=== PATIENT | female | born 1960 | race Caucasian/White ===

== ENCOUNTER 2024-08-26 10:56 | Outpatient (REF) | payer OTHER, SELFPAY ==
[2024-08-26 13:57] LABS: MANUAL DIFF FLAG NO
[2024-08-26 14:04] LABS: Hematocrit 40.1 % (37.0-47.0); Hemoglobin 13.5 g/dl (12.0-16.0); Imm Gran Abs Auto 0.03 X10*3/uL (0.00-0.03); Imm Gran Pct Auto 0.4 % (0.0-0.4); Lymphocytes Absolute Auto 1.4 X10*3/uL (1.2-4.9); Mean Corpuscular HGB Conc 33.7 g/dl (31.0-35.0); Mean Corpuscular Hemoglobin 32.2 pg (27.0-33.0); Mean Corpuscular Volume 95.7 fL (80.0-98.0); NRBC Abs Auto 0.000 X10*3/uL (0.0-0.012); NRBC Pct Auto 0.0 /100WBC (0.0-0.2); Platelet Count 240 X10*3/uL (160-400); Red Blood Count 4.19 X10*6/uL (4.20-5.50); White Blood Count 7.3 X10*3/uL (4.8-10.8)
[2024-08-26 14:24] LABS: Alanine Aminotransferase 30 U/L (0-31); Aspartate Amino Transferase 33 U/L (5-31); Estimated Glomerular Filt Rate > 60
== END 2024-08-26 10:57 | disposition home or self-care (01) ==
LOC: HO.HKASLDS 10:56
PROVIDERS: PCP Internal Medicine; Visit Provider Internal Medicine Rheumatology
DX: M18.11 Unilateral primary osteoarthritis of first carpometacarpal joint, right hand (principal); S76.019A Strain of muscle, fascia and tendon of unspecified hip, initial encounter; M65.4 Radial styloid tenosynovitis [de Quervain]; M79.18 Myalgia, other site; M54.50 Low back pain, unspecified; G89.29 Other chronic pain; Z79.1 Long term (current) use of non-steroidal anti-inflammatories (NSAID); Z79.899 Other long term (current) drug therapy
CPT/HCPCS: 36415; 82565; 84450; 84460; 85025

== ENCOUNTER 2024-08-26 10:56 | Outpatient (AMB) | payer OTHER, SELFPAY ==
--- NOTE | 2024-08-26 11:02 | A.OFFVIS_ITS ---
Vital Signs 08/26/24 11:03 Height 5 ft 6.5 in Weight 144 lb 2 oz BMI 22.9 BP 132/80 Blood Pressure Location Lt brachial Position Sitting Pulse 8 L Pulse Source Pulse Oximeter Pulse Oximetry (%) 98 Oxygen Delivery Method Room Air Intake Visit Reasons: arthritis Intake Note: Patient presents for an arthritis follow up. Patient concerned about bump on right hand for about a year. She also complains of bilateral hip pain. Accompanied by: Self / Same As Patient Allergies Sulfa (Sulfonamide Antibiotics) Allergy (Mild, Verified 08/26/24 11:07) Hives HPI HPI arthritis: Details: New patient visit. For the last 3 weeks she has been experiencing buttocks pain. This pain is new. Pain is exacerbated with prolonged sitting. She has difficulty getting up. Constant pain. She has history of being diagnosed with sciatica with bilateral radiculopathy. She was managed with physical therapy for 6 months without benefit. She saw [facility] who gave her L-spine cortisone injections on 2 separate occasions. Prior to cortisone injections she had 6 months of physical therapy without benefit. The most recent in May provided her relief and resolved radicular symptoms. Most recently she started taking tizanidine twice a day from q.h.s.. Heating pad helps. She had 1 episode of urinary incontinence 2 weeks ago. She takes naproxen 500 mg prn pain. She has been experiencing R CMC pain for the last 6 months with a difficulty holding objects. She has developed weakness in her right hand. She had arthroscopic surgery on left CMC. Medical history [facility] in [facility] ([facility] She has had surgery to repair bilateral rotator cuff tendons, left CMC arthroscopic surgery and breast reduction. Medication list reviewed with patient. [facility] Medical History (Updated 08/26/24 @ 12:41 by John Wilcox MD) Depression Anxiety Joint pain Bilateral hip pain Sciatica High cholesterol Hypertension Osteoarthritis Psoriasis Surgical History (Updated 08/26/24 @ 11:10 by Crystal Frias CMA) History of arthroscopic surgery of shoulder Family History (Updated 08/26/24 @ 11:11 by Crystal Frias CMA) Brother Psoriasis Social History (Updated 08/26/24 @ 11:14 by Crystal Frias CMA) Patient Tobacco Use Status: Former Tobacco user Use of substances other than those prescribed or required for medical reasons: No Physical Exam Vital Signs: Last Vital Signs Pulse 8 L 08/26/24 11:03 BP 132/80 08/26/24 11:03 Pulse Ox 98 08/26/24 11:03 Oxygen Delivery Method Room Air 08/26/24 11:03 BMI result Body Mass Index 22.9 Const Other: General: Comfortable CVS: RRR Respiratory: clear to auscultation bilaterally. Good respiratory effort Skin: No lesions seen MSK: She has tenderness along right 1st extensor compartment. Right CMC squaring with tenderness on palpation. Right 1st MCP pain. She is able to make a fist with her hands. No soft tissue swelling or synovitis. Normal range of motion of upper extremities and lower extremities. She has tenderness along right paraspinal muscle of lower lumbar spine. She has tenderness of bilateral SI joints. Tenderness is localized to lower gluteal muscles. Good lumbar flexion. Assessment & Plan Assessment & Plan (1) Osteoarthritis of carpometacarpal joint of right thumb: Comment: Clinical diagnosis. Discussed conservative management. Code(s): M18.11 - Unilateral primary osteoarthritis of first carpometacarpal joint, right hand Category: Medical Plan: OT prescribed with custom right CMC splint Continue to apply diclofenac gel to affected area up to 4 times a day PRN pain X-ray right hand ordered Baseline labs ordered prior to switching NSAID. She will stop naproxen and start nabumetone 500 mg twice a day Return to clinic in 3 months or sooner if needed for cortisone injection (2) De Quervain's tenosynovitis, right: Comment: Discussed diagnosis and management Code(s): M65.4 - Radial styloid tenosynovitis [de Quervain] Category: Medical Plan: Thumb spica splint prescribed OT prescribed Baseline labs ordered prior to switching NSAID. She will stop naproxen and start nabumetone 500 mg twice a day Return to clinic in 3 months (3) Lower back pain: Comment: Acute on chronic back pain now involving buttocks region. She has background of lumbar bilateral radiculopathy improving with cortisone injections given to her in May. Her most recent back pain is localized to the bilateral buttocks region. Differential diagnosis includes myofascial strain (relief with muscle relaxer and using heating pad at night), SI joint arthritis versus spinal canal stenosis (1 episode of urinary incontinence). We discussed conservative management. She has not found benefit on naproxen. Previously Celebrex was ineffective to help control her pain Code(s): M54.50 - Low back pain, unspecified Category: Medical Qualifiers: Chronicity: chronic Back pain laterality: bilateral Sciatica presence: without sciatica Qualified Code(s): M54.50 - Low back pain, unspecified; G89.29 - Other chronic pain Plan: Baseline labs ordered prior to starting NSAID Stopped naproxen Start nabumetone 500 mg twice a day Continue tizanidine 2 mg b.i.d. Continue to apply heat to back at night PT ordered with myofascial release, TENs unit trial and back strengthening program X-ray L-spine and SI joint ordered for further evaluation of joint pathology contributing to her symptoms If symptoms do not improve with conservative management above, I will order MRI L-spine to evaluate for spinal canal stenosis Return to clinic in 3 months (4) Bilateral buttock pain: Code(s): M79.18 - Myalgia, other site Category: Medical Plan: See above (5) Myofascial low back pain: Code(s): M54.50 - Low back pain, unspecified Category: Medical Plan: See above (6) Muscle strain of gluteal region: Code(s): S76.019A - Strain of muscle, fascia and tendon of unspecified hip, initial encounter Category: Medical Qualifiers: Encounter type: initial encounter Laterality: unspecified laterality Qualified Code(s): S76.019A - Strain of muscle, fascia and tendon of unspecified hip, initial encounter Plan: See above (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 (nsaid): Code(s): Z79.1 - long-term (current) use of non-steroidal anti-inflammatories (NSAID) Category: Medical Plan: See above Orders: Orders XR lumbar spine 2-3V Today M54.50 - Low back pain, unspecified, M79.18 - Joseline lgia, other site Alanine Aminotransferase Today Z79.1 - 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-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 anti-inflammatories (NSAID) OT Evaluation and Treatment Today M18.11 - Unilateral primary osteoarthritis of first carpometacarpal joint, right hand, M65.4 - Radial styloid tenosynovitis [de Quervain] PT Evaluation and Treatment Today M54.50 - Low back pain, unspecified, M79.18 - Myalgia, other site, S76.019A - Strain of muscle, fascia and tendon of unspecified hip, initial encounter XR hand RT min 3V Today M18.11 - Unilateral primary osteoarthritis of first carpometacarpal joint, right hand XR sacroiliac joint min 3V Today M18.11 - Unilateral primary osteoarthritis of first carpometacarpal joint, right hand Aspartate Amino Transferase Today Z79.1 - 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 Replace naproxen. 500 mg PO BID 60 tabs 2RF arm brace (Wrist Brace) As directed R thumb spica splint short Dx: De Quervain tenosynovitis 1 ea 0RF Coding Level of Care Code Est Pt Level 4 (78232) Complex EM visit Add On G2211 Diagnoses Osteoarthritis of carpometacarpal joint of right thumb M18.11 De Quervain's tenosynovitis, right M65.4 Chronic bilateral low back pain without sciatica M54.50; G89.29 Chronicity: chronic Back pain laterality: bilateral Sciatica presence: without sciatica Bilateral buttock pain M79.18 Myofascial low back pain M54.50 Muscle strain of gluteal region, unspecified laterality, initial encounter S76.019A Encounter type: initial encounter Laterality: unspecified laterality 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
[2024-08-26 11:03] VITALS: BP 132/80; PULSE 8; O2SAT 98; BMI 22.9
--- OUTSIDE RECORDS SUMMARY | 2024-08-26 11:46 | XMS_ITS | Patient Health Record ---
Author Organization [employer] [facility] Address [address] [place] [address] Care Team Providers Care Phlebotomy Coordinator Name Role Phone AVIVA SAHU, [facility] Primary Care Provider Un available JOHANNA LE Unavailable [phone] Allergies Allergen (clinical drug ingredient) Drug/Non Drug Allergy documented on EMR Reaction Allergy Type Onset Date Status Substance with sulfonamide structure and antibacterial mechanism of action (substance) Sulfa Antibiotics Hives Drug Allergy Active Reason For Referral No Information Medications Medication SIG (Take, Route, Frequency, Duration) Notes Start Date End Date Status Vitamin D 25 MCG (1000 UT) 1 tablet Oral ly Once a day; Duration: 30 day(s) Active Lisinopril 10 MG 1 tablet Oral Once a day Active traZODone HCl 50MG ORAL; Duration: -3 12/25/2013 Active Vitamin C 500 MG as directed Orally Active Nortriptyline HCl 50MG 3 ORAL at bedtime ; Duration: -3 10/09/2012 Active medroxyPROGESTERone Acetate 5 MG 1 tablet with food Orally Once a day; Duration: 90 days Active Gabapentin 300 MG 1 Orally Twice a day 10/09/2012 Active Rosuvastatin Calcium 40 MG 1 tablet Oral ly Once a day; Duration: 30 day(s) 11/07/2023 Active busPIRone HCl 10 MG 1 tablet Orally Once a day Active Social History Tobacco Use: Social History Observation Description Date Details (start date - stop date) Former Smoker NA - NA Tobacco Use/Smoking Question Answer Notes Are you a former smoker How long has it been since y ou last smoked? > 10 years Additional Findings: Tobacco Non-User Ex-heavy c igarette smoker (20-30/day) Alcohol Screen (Audit-C) Question Answer Notes Did you have a drink contain ing alcohol in the past year? Yes How often did you have a dri nk containing alcohol in the past year? 4 or more times a week (4 points) How many drinks did you have on a typical day when you were drinking in the past year? 1 or 2 drinks (0 point) How often did you have 6 or more drinks on one occasion in the past year? Never (0 point) Points 4 Interpretation Positive Sexual History Question Answer Notes Had sex in the past 12 months (vaginal, oral, or anal)? 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 Heterosexual Problems Problem Type SNOMED Code ICD Code Onset Dates Problem Status W/U Status Risk Notes Problem Postmenopausal bleeding (09376535) Postmenopausal bleeding (N95.0) Active confirmed Problem Menopause (362248509) Menopausal and female climacteric states (N95.1) Active confirmed Problem COVID-19 (737781131) COVID-19 (U07.1) Active confirmed Problem Hyperlipidemia (74389745) Other and unspecified hyperlipidemia (272.4) Active confirmed Major Problem Esophageal reflux (419791387) Esophageal reflux (530.81) Active confirmed Major Problem Menopausal symptom (52881396) Symptomatic menopausal or female climacteric states (627.2) Active confirmed Diag Problem Osteoarthritis (327709255) Osteoarthrosis, unspecified whether generalized or localized, unspecified site (715.90) Active confirmed Major Problem Muscle pain (87057198) Unspecified myalgia and myositis (729.1) Active confirmed Major Vital Signs Temperature 97.5 degrees Fahrenheit 11/07/2023 Blood pressure diastolic 86 mm Hg 11/07/2023 Height 66 in 11/07/2023 Blood pressure systolic 120 mm Hg 11/07/2023 Weight 137 lbs 11/07/2023 BMI 22.11 kg/m2 11/07/2023 Encounters Encounter Location Date Provider Diagnosis Total [facility] [address] [place] [address] 11/07/2023 JOHANNA LE Encounter for gynecological examination (general) (routine) without abnormal findings Z01.419 ; Encounter for screening mammogram for malignant neoplasm of breast Z12.31 and Menopausal and female climacteric states N95.1 Assessments Encounter Date Diagnosis (ICD Code) Assessment Notes Treatment Notes Treatment Clinical Notes Section Notes 11/07/2023 Encounter for gynecological examination (general) (routine) without abnormal findings (ICD-10 - Z01.419) During the visit, the following areas of concern were addressed: Discussed cervical cancer screening with either cytology alone every 3 years or high risk HPV co-testing every 5 years as per ASCCP guidelines. Advised continued annual pelvic exams. Patient encouraged to increase her level of exercise. SBE technique encouraged/tau ght. Patient reminded when annual mammogram is due. Patient encouraged to keep colon screening up to date. 11/07/2023 Encounter for screening mammogram for malignant neoplasm of breast (ICD-10 - Z12.31) 11/07/2023 Menopausal and female climacteric states (ICD-10 - N95.1) Plan Of Treatment Pending Test Test Name Order Date Urinalysis 05/28/2018 URINE CULTURE 06/19/2018 MM Digital Mammo Screening 04/10/2017 MM Digital Mammo Screening 05/28/2018 MM Digital Mammo Screening 10/11/2020 MM Digital Screening Mammogram 3D 2021 MM Digital Screening Mammogram 3D 2022 MM Digital Screening Mammogram 3D 2023 Next Appt Details Provider Name:JOHANNA Bhatia, 11/12/2024 03:30:00 PM, [address], [place], [address], Insurance Providers Payer Name Payer Address Payer Phone Subscriber Number Group Number Insured Name Patient Relationship to Insured Coverage Start Date Coverage End Date [facility] [address] [place] [address] [id number] MARATEA, JAMES Self - patient is the insured Medical (General) History Medical History History ICD Code Menopausal and female climacteric states N95.1 Postmenopausal bleeding N95.0 Fibromyalgia M79.7 Unspecified osteoarthritis, unspecified site M19.90 Gastro-esophageal reflux disease without esophagitis K21.9 Hyperlipidemia, unspecified E78.5 Hormone replacement therapy Z79.890 COVID-19 U07.1 Surgical History Surgery Date(Month/Year) Breast Reduction Arthroscopy Left Thumb Colonoscopy 2011 Rotator cuff surgery - left 02/2019 Rotator cuff surgery - right 10/2017 Hospitalization History Reason Date(Month/Year) See Surgical Hx 2 Vaginal Deliveries
--- OUTSIDE RECORDS SUMMARY | 2024-08-26 11:46 | XMS_ITS | Patient Health Record ---
Author Organization [facility] Address [address] [place] [address] Care Team Providers Care State Farm Agent Team Member Name Role Phone Jose Roberto Franco Primary Care Provider Reason For Referral No Information Plan Of Treatment No Information Insurance Providers Payer Name Payer Address Payer Phone Subscriber Number Group Number Insured Name Patient Relationship to Insured Coverage Start Date Coverage End Date [place] OF [place]/OUT OF [place]AN [address] [place], [place] [id number] Manjula Romero Self - patient is the insured
== END 2024-08-26 12:55 | disposition home or self-care (01) ==
PROVIDERS: PCP Internal Medicine; Visit Provider Internal Medicine Rheumatology
DX: M18.11 Unilateral primary osteoarthritis of first carpometacarpal joint, right hand (principal); M65.4 Radial styloid tenosynovitis [de Quervain]; M54.50 Low back pain, unspecified; G89.29 Other chronic pain; M79.18 Myalgia, other site; S76.019A Strain of muscle, fascia and tendon of unspecified hip, initial encounter; Z79.1 Long term (current) use of non-steroidal anti-inflammatories (NSAID)
CPT/HCPCS: 99214

== ENCOUNTER 2024-09-21 13:39 | Outpatient (REF) | payer OTHER, SELFPAY ==
--- NOTE | ~2024-09-21 | XR_ITS ---
EXAMINATION: XR SACROILIAC JOINTS CLINICAL INFORMATION: M18.11 - Unilateral primary osteoarthritis of first carpometacarpal join... COMPARISON: None available. TECHNIQUE: AP and oblique views of the sacroiliac joints FINDINGS: No acute cortical disruption. No lytic or blastic lesions. Sclerosis and the inferior sacroiliac joints pronounced on the right side. XR/XR sacroiliac joint min 3V IMPRESSION: Mild sacroiliitis. Electronically signed by: Adrien Raza MD 09/21/2024 03:17 PM EDT
--- NOTE | ~2024-09-21 | XR_ITS ---
EXAMINATION: XR LUMBOSACRAL SPINE CLINICAL INFORMATION: M54.50 - Low back pain, unspecified COMPARISON: None available. TECHNIQUE: AP and lateral views. FINDINGS: Levoconvex rotoscoliosis apex at L3-4. Marginal osteophyte formation and endplate sclerosis decreased intervertebral disc height pronounced at L3-4 with the questionable pseudoarthrosis. Grade 1 retrolisthesis L3-4. No acute cortical disruption. No lytic or blastic lesions. XR/XR lumbar spine 2-3V IMPRESSION: Levoconvex rotoscoliosis apex at L3-4 with the likely grade 1 retrolisthesis at L3-4. Electronically signed by: Adrien Raza MD 09/21/2024 03:15 PM EDT
--- NOTE | ~2024-09-21 | XR_ITS ---
EXAMINATION: XR HAND, RIGHT CLINICAL INFORMATION: M18.11 - Unilateral primary osteoarthritis of first carpometacarpal join... COMPARISON: None available. TECHNIQUE: PA, lateral, and oblique views of the right hand. FINDINGS: Joint space narrowing involving the distal and to a lesser extent middle interphalangeal joints of the digits as well as the first carpometacarpal joint. No acute cortical disruption or gross malalignment. No lytic or blastic lesions. No subcutaneous emphysema. No metallic or radiopaque foreign body. XR/XR hand RT min 3V IMPRESSION: Osteoarthritis/osteoarthrosis, digits and first carpometacarpal joint. Electronically signed by: Adrien Raza MD 09/21/2024 03:16 PM EDT
== END 2024-09-21 13:40 | disposition home or self-care (01) ==
LOC: HO.XRAY 13:39
PROVIDERS: PCP Internal Medicine; Visit Provider Internal Medicine Rheumatology
DX: M54.50 Low back pain, unspecified (principal); M79.18 Myalgia, other site; M18.11 Unilateral primary osteoarthritis of first carpometacarpal joint, right hand
CPT/HCPCS: 72100; 72202; 73130

== ENCOUNTER → 2024-09-21 13:44 | Outpatient (BNV) | payer OTHER, SELFPAY | PROVIDERS: PCP Internal Medicine; Visit Provider Radiology Diagnostic Radiology | DX: M54.50 Low back pain, unspecified (principal); M18.11 Unilateral primary osteoarthritis of first carpometacarpal joint, right hand | CPT/HCPCS: 72100; 72202; 73130 ==